=== PATIENT | female | born 1950 | race Caucasian/White ===

== ENCOUNTER 2020-06-16 14:18 | Emergency (ER) | payer MEDICARE, BC ==
--- NOTE | 2020-06-16 14:51 | ER Document Report ---
ED Extremity Problem, Upper - General Chief Complaint: Arm Injury Stated Complaint: FALL/LEFT ARM PAIN Time Seen by Provider: 06/16/20 14:34 Primary Care Provider: AZUCENA CORTES JR, DO [ACTIVE PROVISIONAL STAFF] - Follow up as needed Mode of Arrival: Ambulatory Information source: Patient Notes: 69-year-old female presented to ED for pain to the left elbow and forearm. She states she fell up the stairs at her house about an hour ago. She states she has broken this same elbow in the past. She is alert oriented respirations regular and unlabored speaking in full sentences. She is morbidly obese. She does have a history of high blood pressure fractured elbow breast reduction and wisdom teeth. She does not smoke drink or drugs. REVIEW OF SYSTEMS: CONSTITUTIONAL : Denies fever, chills, or sweats. Denies recent illness. EENT: Denies eye, ear, throat, or mouth pain or symptoms. Denies nasal or sinus congestion. CARDIOVASCULAR: Denies chest pain. MUSCULOSKELETAL: Planes of pain and swelling to the left elbow after she fell. She also had some contusions to the knees but she stated these were nothing compared to the elbow. SKIN: Denies rash or skin lesions. HEMATOLOGIC : Denies easy bruising or bleeding. LYMPHATIC: Denies swollen, enlarged glands. NEUROLOGICAL: Denies altered mental status or loss of consciousness. Denies headache. Denies weakness or paralysis or loss of use of either side. Denies problems with gait or speech. Denies sensory or motor loss. PSYCHIATRIC: Denies anxiety or stress or depression. ALL OTHER SYSTEMS REVIEWED AND NEGATIVE. PHYSICAL EXAMINATION: GENERAL: Well-appearing, well-nourished and in no acute distress. HEAD: Atraumatic, normocephalic. EYES: Pupils equal round extraocular movements intact, conjunctiva are normal. ENT: Nares patent NECK: Normal range of motion LUNGS: No respiratory distress Musculoskeletal: Pain swelling decreased range of motion to the left elbow NEUROLOGICAL: Normal speech, normal gait. PSYCH: Normal mood, normal affect. SKIN: Warm, Dry, normal turgor, no rashes or lesions noted. - HPI Patient complains to provider of: Left, Elbow, Forearm Onset: This afternoon Recent injury: Yes Where: Home, Indoors Quality of pain: Sharp, Throbbing Pain Level: 3 Context: Fall Relieved by: Rest, Positioning Similar symptoms previously: Yes Recently seen / treated by doctor: No - Related Data Allergies/Adverse Reactions: No Known Allergies Allergy (Verified 06/16/20 14:31) Past Medical History - General Information source: Patient - Social History Smoking Status: Never Smoker Frequency of alcohol use: None Drug Abuse: None Lives with: Family Family History: Reviewed & Not Pertinent Patient has homicidal ideation: No - Past Medical History Cardiac Medical History: Reports: Hx Hypertension Pulmonary Medical History: Reports: None EENT Medical History: Reports: None Neurological Medical History: Reports: None Endocrine Medical History: Reports: None Renal/ Medical History: Reports: None Malignancy Medical History: Reports: None GI Medical History: Reports: None Musculoskeletal Medical History: Reports None Skin Medical History: Reports None Psychiatric Medical History: Reports: None Traumatic Medical History: Reports: None Infectious Medical History: Reports: None Past Surgical History: Reports: Hx Breast Surgery, Hx Oral Surgery - Immunizations Immunizations up to date: Yes Hx Diphtheria, Pertussis, Tetanus Vaccination: Yes Physical Exam - Vital signs Vitals: Temp Pulse Resp BP Pulse Ox 98.2 F 101 H 16 146/86 H 96 06/16/20 14:26 06/16/20 14:26 06/16/20 14:26 06/16/20 14:26 06/16/20 14:26 Course - Re-evaluation Re-evalutation: 06/16/20 16:55 Discussed x-ray with Dr. Cortes. He stated long arm posterior with sling and follow-up with him on Wednesday. I discussed the x-ray with the patient and gave her written report. I also showed her the actual films on the computer. Patient has been treated with a long arm posterior splint and sling she was offered narcotics but refused adamantly. She states she rather take Aleve and ibuprofen. - Vital Signs Vital signs: Temp Pulse Resp BP Pulse Ox 98.7 F 85 16 152/82 H 100 06/16/20 16:36 06/16/20 16:36 06/16/20 16:36 06/16/20 16:36 06/16/20 16:36 - Diagnostic Test Radiology reviewed: Image reviewed, Reports reviewed Procedures - Immobilization Left Elbow Time completed: 17:00 Immobilizer type: Long arm posterior, Sling Performed by: PCT Post-Proc Neuro Vasc Exam: Normal Alignment checked and good: Yes Discharge - Discharge Clinical Impression: Displaced fracture of head of left radius, initial encounter for closed fracture Condition: Stable Disposition: HOME, SELF-CARE Additional Instructions: Your x-ray showed an acute displaced fracture of the left radial head with moderate joint effusion at the elbow. Splint Pending Casting Your injury can't be casted until the swelling has subsided. Therefore, a temporary splint has been placed to protect the injury. Full use of an injured area is not possible in a splint. You should follow the doctor's instructions concerning rest, ice, and elevation of the injury. Never do anything which causes pain under the splint. Keep the splint on ALL THE TIME until you return for casting. If there is unexpected severe pain, or numbness, discoloration, or swelling beyond the splint, you should return at once. You have been given a sling to help support the weight of the splint splint. Please do not wear this to bed as it could cause strangulation. Ice & Elevation Apply ice packs frequently against the painful area. Many different schedules are recommended, such as "20 minutes on, 20 minutes off" or "one hour ice, two hours rest." If you need to work, you may need to go longer between ice treatments. You should plan to have the area ice packed AT LEAST one-fourth of the time. The ice should be applied over the wrap, tape, or splint, or over a layer of cloth -- not directly against the skin. Some ice bags have a built-in cloth and can be put directly on the skin. Your injured part should be elevated as much as possible over the next 48 hours. Try to keep the injury above the level of the heart. Avoid use of the injured area. Elevation and rest will decrease the swelling. Ibuprofen Ibuprofen is an excellent, safe drug for pain control. In addition, it has potent antiinflammatory effects which are beneficial, especially in the treatment of injuries, arthritis, or tendonitis. It's best to take ibuprofen with food. Persons with ulcer disease or allergy to aspirin should notify their physician of this before taking ibuprofen. Take the medication exactly as prescribed. Don't take additional doses unless instructed to do so by your doctor. If you develop wheezing, shortness of breath, hives, faintness, stomach pain, vomiting, or dark black stools, return for re-evaluation at once. FOLLOW-UP CARE: If you have been referred to a physician for follow-up care, call the physicians office for an appointment as you were instructed or within the next two days. If you experience worsening or a significant change in your symptoms, notify the physician immediately or return to the Emergency Department at any time for re-evaluation. Forms: Elevated Blood Pressure Referrals: AZUCENA CORTES JR, DO [ACTIVE PROVISIONAL STAFF] - Follow up as needed
--- NOTE | 2020-06-16 15:24 | RADIOLOGY REPORT (SQ) ---
EXAM DESCRIPTION: FOREARM LEFT; ELBOW LEFT OVER 2 VIEWS COMPLETED DATE/TIME: 06/16/2020 3:11 pm REASON FOR STUDY: Fall pain injury COMPARISON: None. NUMBER OF VIEWS: Six views. TECHNIQUE: Two radiographic images acquired of the left forearm. Four radiographic images acquired of the left elbow. LIMITATIONS: None. FINDINGS: MINERALIZATION: Normal. BONES: There is an acute displaced fracture of the radial head. No other acute fracture or dislocati on is noted at the remainder of the forearm. There is moderate joint effusion at the left elbow. SOFT TISSUES: No significant swelling or radiopaque foreign body. IMPRESSION: Acute displaced fracture of the left radial head with moderate joint effusion at the lef t elbow. TECHNICAL DOCUMENTATION: JOB ID: [id number] 2010 [employer]- All Rights Reserved Reading location - IP/workstation name: [email or web address]
--- NOTE | 2020-06-16 15:24 | RADIOLOGY REPORT (SQ) ---
EXAM DESCRIPTION: FOREARM LEFT; ELBOW LEFT OVER 2 VIEWS COMPLETED DATE/TIME: 06/16/2020 3:11 pm REASON FOR STUDY: Fall pain injury COMPARISON: None. NUMBER OF VIEWS: Six views. TECHNIQUE: Two radiographic images acquired of the left forearm. Four radiographic images acquired of the left elbow. LIMITATIONS: None. FINDINGS: MINERALIZATION: Normal. BONES: There is an acute displaced fracture of the radial head. No other acute fracture or dislocati on is noted at the remainder of the forearm. There is moderate joint effusion at the left elbow. SOFT TISSUES: No significant swelling or radiopaque foreign body. IMPRESSION: Acute displaced fracture of the left radial head with moderate joint effusion at the lef t elbow. TECHNICAL DOCUMENTATION: JOB ID: [id number] 2010 [employer]- All Rights Reserved Reading location - IP/workstation name: [email or web address]
[2020-06-16 16:43] VITALS: BP 152/82
== END 2020-06-16 16:43 | disposition home or self-care (01) ==
LOC: ER 14:18
DX: S52.122A Displaced fracture of head of left radius, initial encounter for closed fracture (principal); W10.9XXA Fall (on) (from) unspecified stairs and steps, initial encounter; Y92.009 Unspecified place in unspecified non-institutional (private) residence as the place of occurrence of the external cause; I10 Essential (primary) hypertension
CPT/HCPCS: 99283